=== PATIENT | female | born 1980 | race Caucasian/White ===

== ENCOUNTER 2021-03-08 23:19 | Emergency (ER) | payer OTHER ==
[~2021-03-08] VITALS: Ht 167.6 cm; Wt 94.3 kg
[2021-03-08] MEDS ORDERED: TRAMADOL 50 MG50 MG PO (23:40)
[2021-03-08] MEDS ORDERED: PRILOSEC OTC20 MG PO (23:40)
[2021-03-08] MEDS ORDERED: SOMA250 MG PO (23:40)
[2021-03-09] MEDS ORDERED: TRAMADOL 50 MG50 MG PO (01:07)
[2021-03-09 01:14] VITALS: BP 152/99
== END 2021-03-09 01:16 | disposition home or self-care (01) ==
LOC: M.ERS 23:19
DX: S89.81XA Other specified injuries of right lower leg, initial encounter (principal); Z91.040 Latex allergy status; W18.39XA Other fall on same level, initial encounter; Y93.89 Activity, other specified; Y92.89 Other specified places as the place of occurrence of the external cause; Y99.8 Other external cause status